=== PATIENT | male | born 1990 | race Caucasian/White ===

== ENCOUNTER 2020-10-19 04:58 | Emergency (ER) | payer SELFPAY ==
[2020-10-19 05:04] VITALS: BP 180/120; PULSE 141; RESP 24; TEMP 36.8; O2SAT 99; BMI 27.0
--- NOTE | 2020-10-19 05:07 | ECG_ITS ---
[facility] Test Date: 2020-10-19 Pat Name: Heladio Abdul Department: Room: Gender: Male Advertising Sales Manager: : 1990 Requested By: Alda Richardson Order Number: [id number] Reading MD: JOSE F SANTIZO Measurements Intervals [place] Rate: 144 P: 24 [place]: 99 QRS: -41 QRSD: 93 T: 66 QT: 327 QTc: 506 Interpretive Statements SINUS TACHYCARDIA WITH SHORT [place] INTERVAL, POSSIBLE ATRIAL FLUTTER LEFT AXIS DEVIATION [QRS AXIS < -30] MODERATE T-WAVE ABNORMALITY, CONSIDER ANTEROLATERAL ISCHEMIA [-0.1+ mV T WAVE IN V3-V6] INTERPRETATION BASED ON A DEFAULT AGE OF 40 YEARS No previous ECG available for comparison Electronically Signed On 10-19-2020 21:23:51 SERVICER by JOSE F SANTIZO [id number]
--- NOTE | 2020-10-19 05:07 | XRR_ITS ---
PROCEDURE INFORMATION: Exam: XR Chest, 1 View Exam date and time: 10/19/2020 5:15 AM Age: 29 years old Clinical indication: Chest pain; Additional info: Cp TECHNIQUE: Imaging protocol: XR of the chest Views: 1 view. COMPARISON: No relevant prior studies available. FINDINGS: Lungs: No acute airspace disease. Pleural space: No pleural effusion. Heart/Mediastinum: Epicardial fat accentuates the cardiac silhouette. Bones/joints: Unremarkable. XR/XR chest 1V portable [id number] IMPRESSION: No acute airspace or pleural disease.
--- NOTE | 2020-10-19 05:09 | W.ED.SYNCOPE ---
HPI - Syncope General: Chief Complaint: General Medical Stated Complaint: meth use, etoh, n/v, vision changes Time Seen by Provider: 10/19/20 05:03 Source: patient Mode of arrival: ambulatory Limitations: no limitations History of Present Illness: HPI narrative: 21-year-old male states that roughly 1 hour ago he started to feel very dizzy and passed out. He states he has been having palpitations. He is quite tachycardic and hypertensive here. He is in a methadone clinic but states he has been drinking 1/5 of vodka and used methamphetamine last night at 6 PM. He states has been drinking cans of red bull as well. Patient appears very anxious and jittery. He denies any chest pain. Denies any other drug use besides of methamphetamine at this time. Associated symptoms: Deny abdominal pain, fever(s), headache(s) or nausea Review of Systems Const: Denies: fever(s), chills, body aches or change in appetite Eyes: Denies: blurry vision or eye discomfort ENMT: Denies: throat pain or dental pain Card: Reports: palpitations and syncope Resp: Reports: dyspnea GI: Denies: abdominal pain, nausea, vomiting or diarrhea : Denies: dysuria Musc: Denies: neck pain or back pain Skin/Breast: Denies: rash Neuro: Denies: headache(s) Psych: Denies: depression Mark/Lymph: Denies: easy bruising All/Imm: Denies: urticaria Physical Exam Const: COMMON NORMALS: patient oriented x3 and healthy appearing GENERAL APPEARANCE: anxious HENMT: COMMON NORMALS: normocephalic and atraumatic HEAD & SCALP: normocephalic and atraumatic Eye: COMMON NORMALS: Equal, round and reactive pupils present and EOMs intact bilaterally PUPIL: Yes Equal, round and reactive pupils present Neck/C-Spine: COMMON NORMALS: full ROM and supple Chest: COMMONS NORMALS: normal inspection of the chest and normal palpation of entire chest wall Resp: COMMON NORMALS: normal respiratory effort, No retractions, No use of accessory muscles and clear to auscultation bilaterally AUSCULTATION: clear to auscultation bilaterally Cardio: COMMON NORMALS: regular rhythm and No murmurs present (Cardio) RATE: tachycardic RHYTHM: regular rhythm GI: COMMON NORMALS: Normal to inspection, nondistended, normoactive bowel sounds present, Soft to palpation, non-tender and no masses PALPATION: Yes Soft to palpation Extremity: COMMON NORMALS: normal to inspection and full ROM Neuro: COMMON NORMALS: patient oriented x3, moves all extremities and no focal motor deficits Psych: COMMON NORMALS: mental status grossly normal, Normal thought process present and cooperative MOOD & AFFECT: Yes anxious THOUGHT PROCESS: Normal thought process present Skin: COMMON NORMALS: no rashes or lesions noted and no wounds GENERAL SKIN EXAM: no rashes or lesions noted Course Vital Signs: Vital signs: Vital Signs Temperature 98.2 F 10/19/20 05:04 Pulse Rate 120 H 10/19/20 06:47 Respiratory Rate 18 10/19/20 06:47 Blood Pressure 156/103 10/19/20 06:47 Pulse Oximetry 99 10/19/20 06:47 MDM - Syncope MDM Narrative: Medical decision making narrative: Patient presents here with near syncope along with tachycardia. This is likely due to methamphetamine abuse as he did use methamphetamine yesterday. Patient feels improved after Ativan and IV fluids and is well-appearing here. Patient's blood work and CT head are normal. He is stable for discharge and return if worsening. Lab Data: Labs: Lab Results 10/19/20 10/19/20 Range/Units 05:05 05:05 WBC 15.7 H (4.0-10.0) 10^3/ uL RBC 4.82 (4.1-5.3) 10^6/u L Hgb 15.2 (11.7-16.6) g/dL Hct 44.7 (42.0-52.0) % MCV 92.7 (80-94) fL MCH 31.5 (28.0-34.0) pg MCHC 34.0 (30.0-36.0) g/dL RDW 11.9 L (12.1-15.1) % Plt Count 355 (130-400) 10^3/c mm MPV 9.7 (7.4-10.4) fL Neut % (Auto) 83.1 % Lymph % (Auto) 8.1 % [place] % (Auto) 7.9 % Eos % (Auto) 0.1 % Baso % (Auto) 0.3 % Neut # (Auto) 13.03 H (1.8-7.7) 10^3/u L Lymph # (Auto) 1.3 (0.8-4.8) 10^3/u L [place] # (Auto) 1.2 H (0.2-0.9) 10^3/u L Eos # (Auto) 0.0 (0.0-0.8) 10^3/u L Baso # (Auto) 0.0 (0.0-0.1) 10^3/u L Nucleated RBC % (a uto) 0 % Nucleated RBCs # 0.0 /100WBC Sodium 134 L (136-145) mmol/L Potassium 3.3 L (3.5-5.1) mmol/L Chloride 94 L (98-107) mmol/L Carbon Dioxide 25 (22-29) mmol/L Anion Gap 18.3 (5-19) BUN 8 (6-20) mg/dL Creatinine 0.8 (0.7-1.2) mg/dL GFR Calculation 115.1 (90-130) mL/min Glucose 138 H (65-115) mg/dL Calculated Osmolal ity 279 L (285-295) mOsm/k g Calcium 10.9 H (8.5-10.5) mg/dL Total Bilirubin 0.5 (0.15-1.2) mg/dL AST 61 H (0-40) U/L ALT 37 (0-41) U/L Alkaline Phosphata se 165 H (40-130) IU/L Total Protein 8.0 (6.6-8.7) g/dL Albumin 4.5 (3.5-5.2) g/dL Globulin 3.5 (1.3-4.6) g/dL Ethyl Alcohol < 10 (0-10) mg/dL Imaging Data^: CXR: Radiologist's impression: [facility] [address] [place] [address] XRay Report Signed Patient: Heladio Abdul Unit #: [id number] : 1990 Age/Sex: 29 / M ADM Date: 10/19/20 Loc: ER Room/Bed: Attending Dr: Ordering Provider/Ordering MD: Alda Richardson MD Date of Service: 10/19/20 Procedure(s): XR chest 1V portable [id number] Accession Number(s): [id number] Report Number: [id number] PROCEDURE INFORMATION: Exam: XR Chest, 1 View Exam date and time: 10/19/2020 5:15 AM Age: 29 years old Clinical indication: Chest pain; Additional info: Cp TECHNIQUE: Imaging protocol: XR of the chest Views: 1 view. COMPARISON: No relevant prior studies available. FINDINGS: Lungs: No acute airspace disease. Pleural space: No pleural effusion. Heart/Mediastinum: Epicardial fat accentuates the cardiac silhouette. Bones/joints: Unremarkable. XR/XR chest 1V portable [id number] IMPRESSION: No acute airspace or pleural disease. CT Head: Radiologist's impression: [facility] [address] [address] Scan Report Signed Patient: Heladio Abdul Unit #: [id number] : 1990 Age/Sex: 29 / M ADM Date: 10/19/20 Loc: ER Room/Bed: Attending Dr: Ordering Provider/Ordering MD: Alda Richardson MD Date of Service: 10/19/20 Procedure(s): CT head wo con* [id number] Accession Number(s): [id number] Report Number: [id number] PROCEDURE INFORMATION: Exam: CT Head Without Contrast Exam date and time: 10/19/2020 5:15 AM Age: 29 years old Clinical indication: Altered mental status/memory loss; Additional info: Fall TECHNIQUE: Imaging protocol: Computed tomography of the head without contrast. Radiation optimization: All CT scans at this facility use at least one of these dose optimization techniques: automated exposure control; mA and/or kV adjustment per patient size (includes targeted exams where dose is matched to clinical indication); or iterative reconstruction. COMPARISON: No relevant prior studies available. RADIATION DOSE METRICS: Total DLP (mGy-cm): 757.21 FINDINGS: Brain: Mild symmetric prominence of the cortical sulci relative to the stated patient age. No acute post-traumatic brain injury. Cerebral ventricles: Normal configuration of the ventricles. Bones/joints: No acute calvarial injury. Paranasal sinuses: No sinus fluid. Mastoid air cells: No mastoid effusion. Vasculature: Vascular calcification. Soft tissues: No significant scalp hematoma. CT/CT head wo con* [id number] IMPRESSION: No acute post-traumatic brain injury. EKG Data^: EKG 1: Attestation: I personally reviewed and interpreted this EKG as follows: EKG interpretation date: 10/19/20 EKG interpretation time: 05:04 Interpretation: sinus tach hr [address] or t wave abnormalities qrs 93 qtc 410 Discharge Plan Discharge Patient Disposition: Home Clinical Impression: Methamphetamine abuse, Syncope Condition: Stable Prescriptions: New ondansetron 4 mg tablet,disintegrating 4 mg PO Q6H PRN (Reason: nausea and vomiting) Qty: 14 RF: 0 Discharge Orders: Discharge ED (Routine); Ordered 10/19/20 Ordered By: Alda Richardson Discharge Diet: Advance as tolerated Discharge Activity: Resume usual activity Patient Instructions: Methamphetamine Abuse (ED) Coding Level of Care Code ED Facsimile Operator for Liu Fwd Exam Comprehensive
[2020-10-19] MEDS: sodium chloride 0.9% 1,000 ML 999 ML IV ×2 (05:16→06:17)
[2020-10-19] MEDS: LORazepam 2 mg/mL INJ 1 mL IV (05:16)
[2020-10-19 05:30] LABS: Alanine Aminotransferase 37 U/L (0-41); Albumin Level 4.5 g/dL (3.5-5.2); Alkaline Phosphatase 165 IU/L (40-130); Anion Gap 18.3 (5-19); Aspartate Amino Transferase 61 U/L (0-40); Blood Urea Nitrogen 8 mg/dL (6-20); Calcium 10.9 mg/dL (8.5-10.5); Carbon Dioxide 25 mmol/L (22-29); Chloride 94 mmol/L (98-107); Creatinine Clr Calc Pharmacy 129.9612; Globulin 3.5 g/dL (1.3-4.6); Glomerular Filtration Rate 115.1 mL/min (90-130); Glucose 138 mg/dL (65-115); Osmolality Calculated 279 mOsm/kg (285-295); Potassium 3.3 mmol/L (3.5-5.1); Sodium 134 mmol/L (136-145); Total Bilirubin 0.5 mg/dL (0.15-1.2)
[2020-10-19 06:04] LABS: Alcohol Level < 10 mg/dL (0-10)
[2020-10-19] MEDS: LORazepam 2 mg/mL INJ 1 mL IVP (06:16)
[2020-10-19 06:19] VITALS: BP 160/94; PULSE 118; RESP 19; O2SAT 97
[2020-10-19 06:20] LABS: Basophils % 0.3 %; Eosinophils % 0.1 %; Hematocrit 44.7 % (42.0-52.0); Hemoglobin 15.2 g/dL (11.7-16.6); Lymphocytes # 1.3 10^3/uL (0.8-4.8); Lymphocytes % 8.1 %; Mean Corpuscular Hemoglobin 31.5 pg (28.0-34.0); Mean Corpuscular Volume 92.7 fL (80-94); Mean Platelet Volume 9.7 fL (7.4-10.4); Monocytes # 1.2 10^3/uL (0.2-0.9); Monocytes % 7.9 %; Neutrophils # 13.03 10^3/uL (1.8-7.7); Neutrophils % 83.1 %; Nucleated Red Blood Cells % 0 %; Platelet Count 355 10^3/cmm (130-400); Red Blood Count 4.82 10^6/uL (4.1-5.3); Red Cell Distribution Width 11.9 % (12.1-15.1); White Blood Count 15.7 10^3/uL (4.0-10.0)
[2020-10-19 06:47] VITALS: BP 156/103; PULSE 120; RESP 18; O2SAT 99
== END 2020-10-19 06:49 | disposition home or self-care (01) ==
PROVIDERS: Emergency Provider Emergency Medicine
DX: R55 Syncope and collapse (principal); F15.10 Other stimulant abuse, uncomplicated
CPT/HCPCS: 12345; 70450; 71045; 80053; 80307; 85025; 93005; 96361; 96374; 96376; 99282; 99283; J2060; J7030

== ENCOUNTER → 2021-05-15 08:44 | Outpatient (BNVA) | payer OTHER, SELFPAY | PROVIDERS: Visit Provider Nurse Practitioner Family | DX: Z20.822 Contact with and (suspected) exposure to COVID-19 (principal) | CPT/HCPCS: 87426; 87635 ==

== ENCOUNTER → 2023-05-19 16:25 | Outpatient (BNVA) | payer SELFPAY | PROVIDERS: Visit Provider Nurse Practitioner | DX: Z20.822 Contact with and (suspected) exposure to COVID-19 (principal) | CPT/HCPCS: 87426 ==

== ENCOUNTER → 2023-07-04 15:26 | Outpatient (BNVA) | payer SELFPAY | PROVIDERS: PCP Nurse Practitioner Family; Visit Provider Nurse Practitioner Family | DX: R51.9 Headache, unspecified (principal) | CPT/HCPCS: 80053; 84443; 85025 ==

== ENCOUNTER 2024-11-07 10:55 | Emergency (ER) | payer MEDICAID, SELFPAY ==
[2024-11-07] VITALS (7 sets, daily range): BP systolic 149–162; BP diastolic 85–107; PULSE 3–103; RESP 15–20; TEMP 36.7; O2SAT 96–100; BMI 29.9
--- NOTE | 2024-11-07 10:59 | ECG_ITS ---
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 Measurements Intervals [place] Rate: 96 P: 69 [place]: 148 QRS: -31 QRSD: 90 T: 80 QT: 359 QTc: 454 Interpretive Statements SINUS RHYTHM LEFT AXIS DEVIATION [QRS AXIS < -30] ST DEVIATION AND MODERATE T-WAVE ABNORMALITY, CONSIDER ANTERIOR ISCHEMIA [-0.1+ mV T-WAVE IN V3/V4] Compared to ECG 10/19/2020 05:04:27 No significant changes Electronically Signed On 11-07-2024 17:21:03 FURNACE INSTALLER by Miriam Garcia M.D. [id number] [id number]
--- NOTE | 2024-11-07 10:59 | XR_ITS ---
WS: [id number] XR chest 1V portable [id number] REASON FOR EXAM: Chest pain FINDINGS: The chest is unchanged compared to 10/19/2020. Normal aorta. Heart size is at the upper limits of normal. Calcified granulomatous disease bilaterally. No acute pulmonary parenchymal or pleural abnormality. No significant abnormality of the bony thorax. XR/XR chest 1V portable [id number] IMPRESSION: Stable chest without acute abnormality.
--- NOTE | 2024-11-07 11:26 | W.ED.CHESTPA ---
HPI - Chest Pain General: Chief Complaint: Chest Pain Stated Complaint: chest pain Time Seen by Provider: 11/07/24 11:15 History of Present Illness: Patient resents to the ER with complaints of chest pain and shortness of breath and near syncope. Patient said he was at work working normally until he took a second break and then he sat down and puffed on his vape and then he got a little lightheaded felt like he could not breathe catch his breath and that he was going to pass out. Patient took a longer break than normal this did not go away. So patient come here to be evaluated. Patient says he has family members are getting over the flu. He does denies any heart history or lung history. Significant medical history or surgical history. Related Data Home Medications ?Medication ?Instructions ?Recorded ?Confirmed methadone 40 mg soluble tablet 140 mg PO DAILY 02/04/24 11/07/24 famotidine 20 mg tablet 20 mg PO DAILY 11/07/24 11/07/24 Previous Rx's ?Medication ?Instructions ?Recorded cetirizine 10 mg tablet (Zyrtec) 10 mg PO DAILY #30 tabs 02/04/24 fluticasone propionate 50 2 spray intranasal DAILY #16 grams 02/04/24 mcg/actuation nasal spray,suspension (Flonase Allergy Relief) Allergies Allergy/AdvReac Type Severity Reaction Status Date / Time No Known Allergies Allergy Verified 04/10/24 09:11 Review of Systems General: Reports: 10 or more systems reviewed and unremarkable except in HPI and below PFSH ED PFSH: Social History Smoking and tobacco/nicotine status: current every day tobacco/nicotine user cigarettes Second hand smoke exposure: No Alcohol intake: never Substance/Drug Use: never Adopted: No Housing: House service: No Current occupational status: employed Physical Exam Const: COMMON NORMALS: no acute distress, average body habitus, patient oriented x3, no limitations, healthy appearing, alert and well nourished HENMT: COMMON NORMALS: normocephalic, atraumatic, hearing grossly normal bilaterally, external ears normal and Normal nasal mucous membranes and turbinates present HEAD & SCALP: normocephalic and atraumatic NOSE: Normal nasal mucous membranes and turbinates present EXTERNAL EAR: Yes external ears normal Neck/C-Spine: COMMON NORMALS: full ROM, no lymphadenopathy, supple, no meningeal signs, no JVD and Thyroid normal THYROID: Thyroid normal Chest: COMMONS NORMALS: normal inspection of the chest and normal palpation of entire chest wall Resp: COMMON NORMALS: normal respiratory effort, No retractions, No use of accessory muscles and clear to auscultation bilaterally AUSCULTATION: clear to auscultation bilaterally Cardio: COMMON NORMALS: no JVD, regular rate, regular rhythm, S1 normal heart sound present, S2 normal heart sound present, No gallops present (Cardio), No clicks present (Cardio), No murmurs present (Cardio) and No rub (Cardio) RATE: regular rate RHYTHM: regular rhythm HEART SOUNDS: S1 normal heart sound present and S2 normal heart sound present GI: COMMON NORMALS: Normal to inspection, nondistended, normoactive bowel sounds present, Soft to palpation, non-tender, No hepatosplenomegaly present and no masses PALPATION: Yes Soft to palpation and Yes No hepatosplenomegaly present Neuro: COMMON NORMALS: patient oriented x3 SENSORIUM/ORIENTATION: Yes alert MENINGEAL SIGNS: Yes no meningeal signs Course Vital Signs: Vital signs: Vital Signs Temperature 98.1 F 11/07/24 11:01 Pulse Rate 84 11/07/24 14:00 Respiratory Rate 15 11/07/24 14:00 Blood Pressure 149/85 11/07/24 14:00 Pulse Oximetry 98 11/07/24 14:00 Oxygen Delivery Me thod Room Air 11/07/24 14:00 MDM - Chest Pain Medical Decision Making Patient had lab work including serial troponins, chest x-ray, serial EKGs, all essentially was benign. Patient stated he was feeling better by time he got the last labs back. These results was discussed with him in detail. Patient be discharged home. Medical Records I reviewed the patient's medical records. Lab Data I reviewed the patient's lab results. 11/07/24 11:28 11/07/24 11:28 Radiology Impressions Chest X-Ray 11/07/24 10:59 IMPRESSION: Stable chest without acute abnormality. Laboratory Results WBC 7.72 10^3/uL (3.29-11.43) 11/07/24 11:28 RBC 4.45 10^6/uL (3.85-5.65) 11/07/24 11:28 Hgb 13.80 g/dL (11.27-16.99) 11/07/24 11:28 Hct 40.8 % (37-53) 11/07/24 11: MCV 91.7 fl (82-101) 11/07/24 11:28 MCH 31.0 pg (27-33) 11/07/24 11:28 MCHC 33.8 g/dL (30-55) 11/07/24 11:28 RDW 12.6 % (12.1-15.1) 11/07/24 11:28 Plt Count 316 10^3/cmm (157-399) 11/07/24 11:28 MPV 9.1 fL (7.4-10.4) 11/07/24 11:28 Neut % (Auto) 65.3 % 11/07/24 11: Lymph % (Auto) 26.0 % 11/07/24 11:28 [place] % (Auto) 7.1 % 11/07/24 11:28 Eos % (Auto) 0.5 % 11/07/24 11:28 Baso % (Auto) 0.6 % 11/07/24 11:28 Neut # (Auto) 5.03 10^3/uL (1.8-7.7) 11/07/24 11: Lymph # (Auto) 2.0 10^3/uL (0.8-4.8) 11/07/24 11:28 [place] # (Auto) 0.6 10^3/uL (0.2-0.9) 11/07/24 11: Eos # (Auto) 0.0 10^3/uL (0.0-0.8) 11/07/24 11:28 Baso # (Auto) 0.1 10^3/uL (0.0-0.1) 11/07/24 11: Nucleated RBC % (auto) 0 % 11/07/24 11: Nucleated RBCs # 0.0 /100WBC 11/07/24 11:28 Sodium 136 mmol/L (136-145) 11/07/24 11:28 Potassium 3.5 mmol/L (3.5-5.1) 11/07/24 11:28 Chloride 96 mmol/L (98-107) L 11/07/24 11:28 Carbon Dioxide 23 mmol/L (22-29) 11/07/24 11:28 Anion Gap 20.5 (5-19) H 11/07/24 11:28 BUN 8 mg/dL (6-20) 11/07/24 11:28 Creatinine 0.6 mg/dL (0.7-1.2) L 11/07/24 11:28 GFR Calculation 156.1 mL/min (90-130) H 11/07/24 11:28 Glucose 111 mg/dL (65-115) 11/07/24 11:28 Calculated Osmolality 281 mOsm/kg (285-295) L 11/07/24 11:28 Calcium 9.2 mg/dL (8.5-10.5) 11/07/24 11:28 Total Bilirubin 0.4 mg/dL (0.15-1.2) 11/07/24 11:28 AST 45 U/L (0-40) H 11/07/24 11:28 ALT 37 U/L (0-41) 11/07/24 11:28 Alkaline Phosphatase 111 U/L (40-130) 11/07/24 11:28 Troponin T Baseline < 6 ng/L (0-15) 11/07/24 11:28 Troponin T 120 Minute 6.00 ng/L (0-15) 11/07/24 13:33 Delta Troponin T 0.16204 ABS# (0-10) 11/07/24 13:33 Total Protein 7.1 g/dL (6.6-8.7) 11/07/24 11:28 Albumin 4.3 g/dL (3.5-5.2) 11/07/24 11:28 Globulin 2.8 g/dL (1.3-4.6) 11/07/24 11:28 Coronavirus (PCR) Negative (Negative) 11/07/24 11:50 Influenza A (PCR) Negative (Negative) 11/07/24 11:50 Influenza Type B (PCR) Negative (Negative) 11/07/24 11:50 RSV (PCR) Negative (Negative) 11/07/24 11:50 All radiology interpretation(s) finalized by discharge Discharge Plan Discharge Patient Disposition: Home Clinical Impression: Near syncope Chest pain Qualifiers: Chest pain type: unspecified Qualified Code(s): R07.9 - Chest pain, unspecified Condition: Stable Prescriptions: No Action methadone 40 mg tablet,soluble 140 mg PO DAILY fluticasone propionate [Flonase Allergy Relief] 50 mcg/actuation spray,suspension 2 spray intranasal DAILY Qty: 16 0RF Rx Instructions: administer into each nostril cetirizine [Zyrtec] 10 mg tablet 10 mg PO DAILY Qty: 30 0RF famotidine 20 mg Tablet 20 mg PO DAILY Discharge Orders: Discharge ED (Routine); Ordered 11/07/24 Ordered By: Sylvester Youssef Referrals: Kathy Kennedy FNP-C [Primary Care Provider] - 1 week Patient Instructions: Chest Pain (ED), Near Syncope (ED) Activity Restrictions/Additional Instructions: Activity restrictions/additional instructions: Thank you for choosing [facility] for your healthcare needs today. Please realize that you were seen in the emergency department and that we are providing you with an emergency medical screening exam and this may not be a complete and all exclusive of all testing and/or medical workup we may need to determine your element or severity of your illness. It is very important that you follow-up as instructed with your primary care provider or specialist for the additional evaluation and to discuss your medical treatment plan. You may return to the emergency department should you have concerns or if your condition changes or worsens in any way. Print Language: Dominican Coding Level of Care Code ED Telephone Interviewer for Liu Smith
[2024-11-07 11:34] LABS: Basophils # 0.1 10^3/uL (0.0-0.1); Basophils % 0.6 %; Eosinophils % 0.5 %; Hematocrit 40.8 % (37-53); Mean Corpuscular HGB Conc 33.8 g/dL (30-55); Mean Corpuscular Volume 91.7 fl (82-101); Mean Platelet Volume 9.1 fL (7.4-10.4); Monocytes # 0.6 10^3/uL (0.2-0.9); Monocytes % 7.1 %; Neutrophils # 5.03 10^3/uL (1.8-7.7); Neutrophils % 65.3 %; Nucleated Red Blood Cells % 0 %; Platelet Count 316 10^3/cmm (157-399); Red Blood Count 4.45 10^6/uL (3.85-5.65); Red Cell Distribution Width 12.6 % (12.1-15.1); White Blood Count 7.72 10^3/uL (3.29-11.43)
[2024-11-07 11:53] LABS: Alanine Aminotransferase 37 U/L (0-41); Albumin Level 4.3 g/dL (3.5-5.2); Alkaline Phosphatase 111 U/L (40-130); Anion Gap 20.5 (5-19); Aspartate Amino Transferase 45 U/L (0-40); Blood Urea Nitrogen 8 mg/dL (6-20); Calcium 9.2 mg/dL (8.5-10.5); Carbon Dioxide 23 mmol/L (22-29); Chloride 96 mmol/L (98-107); Globulin 2.8 g/dL (1.3-4.6); Glomerular Filtration Rate 156.1 mL/min (90-130); Glucose 111 mg/dL (65-115); Osmolality Calculated 281 mOsm/kg (285-295); Potassium 3.5 mmol/L (3.5-5.1); Sodium 136 mmol/L (136-145); Total Bilirubin 0.4 mg/dL (0.15-1.2); Total Protein 7.1 g/dL (6.6-8.7); Troponin(5th) Baseline < 6 ng/L (0-15)
--- NOTE | 2024-11-07 12:30 | ECG_ITS ---
[facility] Test Date: 2024-11-07 Pat Name: Heladio Abdul Department: Room: Gender: Male Bilingual Sales Consultant: : 1990 Requested By: Sylvester Youssef Order Number: [id number] Anabel MD: Miriam Garcia M.D. Measurements Intervals [place] Rate: 80 P: 66 [place]: 143 QRS: -12 QRSD: 95 T: 34 QT: 388 QTc: 449 Interpretive Statements SINUS RHYTHM MODERATE T-WAVE ABNORMALITY, CONSIDER ANTEROLATERAL ISCHEMIA [-0.1+ mV T-WAVE IN V3-V6] Compared to ECG 11/07/2024 10:58:41 Left-axis deviation no longer present T-wave abnormality still present Possible ischemia still present Electronically Signed On 11-07-2024 18:02:09 MODEL MAKER FIBERGLASS by Miriam Garcia M.D. [email or web address] [id number]
[2024-11-07 12:36] LABS: Covid PCR NEGATIVE (Negative); Influenza A NEGATIVE (Negative); Influenza B NEGATIVE (Negative); Respiratory Syncytial Virus Ce NEGATIVE (Negative)
[2024-11-07 14:16] LABS: Troponin 5 2HR Delta 0.00001 ABS# (0-10)
== END 2024-11-07 15:00 | disposition home or self-care (01) ==
PROVIDERS: Emergency Provider Emergency Medicine; PCP Nurse Practitioner Family
DX: R55 Syncope and collapse (principal); R07.9 Chest pain, unspecified; Z11.52 Encounter for screening for COVID-19; F17.210 Nicotine dependence, cigarettes, uncomplicated
CPT/HCPCS: 36415; 71045; 80053; 84484; 85025; 87637; 93005; 99285

== ENCOUNTER → 2025-07-07 13:52 | Outpatient (BNVA) | payer MEDICAID, SELFPAY | PROVIDERS: PCP Nurse Practitioner Family; Visit Provider Emergency Medicine | DX: S62.336A Displaced fracture of neck of fifth metacarpal bone, right hand, initial encounter for closed fracture (principal); W22.09XA Striking against other stationary object, initial encounter | CPT/HCPCS: 73130 ==

== ENCOUNTER → 2025-07-11 15:45 | Outpatient (BNVA) | payer MEDICAID, SELFPAY | PROVIDERS: PCP Nurse Practitioner Family; Visit Provider Orthopaedic Surgery | DX: S62.336A Displaced fracture of neck of fifth metacarpal bone, right hand, initial encounter for closed fracture (principal); X58.XXXA Exposure to other specified factors, initial encounter | CPT/HCPCS: 73130 ==

== ENCOUNTER → 2025-07-25 15:22 | Outpatient (BNVA) | payer MEDICAID, SELFPAY | PROVIDERS: PCP Nurse Practitioner Family; Visit Provider Orthopaedic Surgery | DX: S62.336D Displaced fracture of neck of fifth metacarpal bone, right hand, subsequent encounter for fracture with routine healing (principal); X58.XXXD Exposure to other specified factors, subsequent encounter | CPT/HCPCS: 73130 ==